=== PATIENT | male | born 1985 | race Caucasian/White ===

== ENCOUNTER 2019-10-21 19:10 | Emergency (ER) | payer MEDICAID ==
[~2019-10-21] VITALS: Ht 165.1 cm; Wt 99.8 kg
[2019-10-21 19:30] VITALS: BP_SYST 165
--- NOTE | 2019-10-21 19:30 | NUR ---
Patient to ER bed [facility] 1 to go for evaluation. Side rails up. Report given to VIKAS.
--- NOTE | 2019-10-21 19:52 | NUR ---
Patient a&o x4 complaining of a spider bite that happened one week ago on the inside of his right ankle after cleaning out garage. Patient reports yellow and green pus drainage that he noticed today. Patient states the pain has become excrutiating today, has sharp needle pains on feet and ankle, and rates it at a 10/10. Patient noticed both legs have become swollen. Right ankle is swollen, warm to the touch, and red. Patient appears diaphoretic and red. pt hx of HBP and CHF, surgery to remove metal object in abdomen. allergies to lasix and sulfa
--- NOTE | 2019-10-21 20:10 | NUR ---
ER Dr. moyer at bedside examining patient.
[2019-10-21] MEDS ORDERED: hydrALAZINE HCL 20 MG/ML VIAL IVP ONE (20:15)
[2019-10-21] MEDS ORDERED: NACL 0.9% 1,000 ML IV ONE (20:15)
[2019-10-21] MEDS ORDERED: cefTRIAXone 1 GM in D5W 50 ML IV ONE (20:15)
[2019-10-21] MEDS ORDERED: MORPHINE 4 MG/ML INJ. SYRINGE IVP ONE (20:30)
--- NOTE | 2019-10-21 20:35 | NUR ---
# 20 gauge angiocath placed to LAC. Use of asceptic technique. Opsite placed over site. Blood return noted. Blood, BLOOD CULTURES, AND LACTIC for lab drawn from site. Flushed with 10 cc of normal saline. No evidence of infiltration noted. Patient tolerated well.
--- NOTE | 2019-10-21 20:44 | NUR ---
Pt moved to bed 4
--- NOTE | 2019-10-21 20:50 | NUR ---
Blood cultures drawn, prior to administration of antibiotic.
[2019-10-21 20:55] LABS: BASOPHILS % (AUTO) 0.2 % (0.0-2.0); EOSINOPHILS # (AUTO) 0.4 K/uL (0.0-0.4); HEMATOCRIT 45.1 % (36-54); HEMOGLOBIN 14.9 g/dL (14.0-18.0); LYMPHOCYTES # (AUTO) 1.2 K/uL (1.0-5.5); LYMPHOCYTES % (AUTO) 12.1 % (20.5-51.5); MEAN CORPUSCULAR HEMOGLOBIN 26 pg (27-31); MEAN CORPUSCULAR HGB CONC 33 % (32-36); MEAN CORPUSCULAR VOLUME 78 fL (79.0-98.0); MONOCYTES # (AUTO) 0.7 K/uL (0.0-1.0); NEUTROPHILS # (AUTO) 7.7 K/uL (1.8-7.7); NEUTROPHILS % (AUTO) 76.7 % (40.0-70.0); PLATELET COUNT (AUTO) 252 K/uL (130-430); RED BLOOD CELL COUNT(AUTO) 5.77 MIL/uL (4.2-6.2); RED CELL DISTRIBUTION WIDTH 17.8 % (9.0-15.0); WHITE BLOOD COUNT (AUTO) 10.1 K/uL (4.8-10.8)
[2019-10-21] MEDS ORDERED: cefTRIAXone 1 GM IVPB PREMIX 50 ML IV ONE (21:00)
[2019-10-21 21:01] LABS: CREATININE 1.09 mg/dL (0.55-1.30); POTASSIUM 3.5 mmol/L (3.5-5.1)
[2019-10-21 21:06] LABS: ALBUMIN 3.2 g/dL (3.4-4.8)
--- NOTE | 2019-10-21 21:22 | NUR ---
PATIENT STATES PAIN HAS GONE DOWN TO AN 8 OUT OF 10 AFTER ADMINISTRATION OF MORPHINE 4MG IVP. MD WASHBURN.
--- NOTE | 2019-10-21 21:56 | NUR ---
PRE AND POST HYDRALAZINE CARDIAC STRIP RECORDED AND PLACED IN PATIENTS STRIP.
--- NOTE | 2019-10-21 21:59 | NUR ---
PATIENT STATES PAIN HAS INCREASED TO A 10 OUT OF 10. MD NOTIFIED.
[2019-10-21] MEDS ORDERED: KETOROLAC TROMETHAMINE 30 MG VIAL IVP ONE (22:15)
--- NOTE | 2019-10-21 22:25 | NUR ---
PER MD ORDER, TORADOL 30MG IVP GIVEN FOR PAIN. PATIENT TOLERATED WELL.
--- NOTE | 2019-10-21 22:52 | NUR ---
Patient taken to ultrasound, accompanied by tech. Odalis
--- NOTE | 2019-10-21 23:00 | NUR ---
Patient returned from ultrasound, placed on monitor.
[2019-10-21 23:57] VITALS: BP_SYST 155
--- NOTE | 2019-10-21 23:57 | NUR ---
Patient given written and verbal discharge instructions and verbalizes understanding. ER MD discussed with patient the results and treatment provided. Patient in stable condition. ID arm band removed. IV catheter removed intact and dressing applied, no active bleeding. Rx of keflex, ibuprofen, norco given. Patient educated on pain management and to follow up with PMD. Pain Scale 8/10. Opportunity for questions provided and answered. Medication side effect fact sheet provided.
== END 2019-10-21 23:57 | disposition home or self-care (01) ==
LOC: SED 19:10
DX: L03.116 Cellulitis of left lower limb (principal); L03.115 Cellulitis of right lower limb; R00.0 Tachycardia, unspecified; F19.10 Other psychoactive substance abuse, uncomplicated; I10 Essential (primary) hypertension; Z88.2 Allergy status to sulfonamides; Z88.8 Allergy status to other drugs, medicaments and biological substances
CPT/HCPCS: 36415; 80053; 83605; 85025; 87040; 93005; 93971; 96365; 96375; 99285; J0360; J0696; J1885; J2270; J7030